=== PATIENT | female | born 1945 | race Caucasian/White ===

== ENCOUNTER 2016-07-25 07:01 | Day surgery (SDC) | payer MEDICARE, OTHER ==
[~2016-07-25 07:01] MED LIST: Lactated Ringers 1,000 ML IV SCH; Lidocaine 1%/Sod Bicarbonate in NS 8.4% 1 ML Syringe PRN; Sodium Chloride 0.9% 10 ML Syringe FLUSH PRN
--- NOTE | 2016-07-25 07:22 | PCM.PREANE ---
Preanesthetic Assessment - Anesthesia/Transfusion/Family Hx Anesthesia History: Prior Anesthesia Without Reaction Family History of Anesthesia Reaction: No Transfusion History: No Prior Transfusion(s) Intubation History: Unknown - Review of Systems General: No Symptoms Cardiovascular: No Symptoms Gastrointestinal: No symptoms Neurological: Tingling (both sides ) Other: Reports: Diabetes (pre-diabetic ) - Physical Assessment NPO Status Date: 07/24/16 NPO Status Time: 21:30 Pulse: 79 O2 Sat by Pulse Oximetry: 94 Respiratory Rate: 16 Blood Pressure: 144/69 Temperature: 36.9 C Height: 1.6 m Weight: 65.1 kg ASA Class: 2 Mental Status: Alert & Oriented x3 Airway Class: Mallampati = 2 Dentition: Reports: Normal Dentition Thyro-Mental Finger Breadths: 3 Mouth Opening Finger Breadths: 5 ROM/Head Extension: Full Lungs: Clear to auscultation, Normal respiratory effort Cardiovascular: Regular Rate, Regular Rhythm - Allergies Allergies/Adverse Reactions: Allergies Allergy/AdvReac Type Severity Reaction Status Date / Time Penicillins Allergy Rash Verified 07/24/16 12:05 - Blood Blood Available: No - Anesthesia Plan Pre-Op Medication Ordered: None - Acknowledgements Anesthesia Type Planned: MAC Pt an Appropriate Candidate for the Planned Anesthesia: Yes Alternatives and Risks of Anesthesia Discussed w Pt/Guardian: Yes Pt/Guardian Understands and Agrees with Anesthesia Plan: Yes PreAnesthesia Questionnaire HEENT History: Reports: Allergic rhinitis Genitourinary History: Reports: UTI, recurrent Musculoskeletal History: Reports: Arthritis Endocrine/Metabolic History: Reports: Hypothyroidism - Past Surgical History Female Surgical History: Reports: Hysterectomy, Other (see below) Other Female Surgeries/Procedures: mid-urethral sling - SUBSTANCE USE Smoking Status *Q: Never Smoker Number of Drinks Per Day: 2 Recreational Drug Use History: No - HOME MEDS Home Medications: Home Meds Calcium Carbonate/Vitamin D3 [Calcium 500 + Vit D 400] 1 tab PO DAILY 07/24/16 [ History] Diclofenac Sodium [Voltaren] 50 mg PO DAILY 07/24/16 [History] Fish Oil/[place]-3 Fatty Acids [Fish Oil 1,000 MG] 1 cap PO DAILY 07/24/16 [ History] Fluticasone Propionate [Flonase] 1 spray NASBOTH DAILY 07/24/16 [History] Glucosamine/D3/Boswellia Elzbieta [Osteo Bi-Flex Caplet] 1 tab PO DAILY 07/24/16 [ History] Levothyroxine Sodium [Synthroid] 125 mcg PO DAILY 07/24/16 [History] metFORMIN [Glucophage XR] 500 mg PO DAILY 07/24/16 [History] - CURRENT (IN HOUSE) MEDS Current Meds: Current Medications Lactated Ringer's (Ringers, Lactated) 1,000 mls @ 125 mls/hr IV ASDIRECTED EMMANUEL Stop: 07/25/16 23:00 Lidocaine/Sodium Bicarbonate (Buffered Lidocaine 1% In Ns 8.4%) 0.25 ml .XX ONETIME PRN PRN Reason: Prior to IV Start Stop: 07/25/16 18:00 Sodium Chloride (Saline Flush) 10 ml FLUSH ASDIRECTED PRN PRN Reason: Keep Vein Open Stop: 07/25/16 18:00
[2016-07-25] MEDS ORDERED: Propofol 200 MG/20 ML SDV ONE ×2 (07:49→09:01)
[2016-07-25] MEDS ORDERED: Lidocaine 1% 4 ML ONE (07:51)
--- NOTE | 2016-07-25 08:59 | PCM.OPNOTE ---
- General Post-Op/Procedure Note Date of Surgery/Procedure: 07/25/16 Operative Procedure(s): Colonoscopy Findings: large sigmoid divertuculosis with sigmoid tortuosity and thickend circular musculature. No hemorrhoids were seen. No evidence of acute or chronic bleeding was seen. Pre Op Diagnosis: rectal bleeding Post-Op Diagnosis: Large sigmoid diverticulosis Anesthesia Technique: MAC, Moderate sedation Primary Surgeon: Pranay Mcgee Pathology: None EBL in mLs: 0 Complications: None Condition: Good Free Text/Narrative:: After adequate IV sedation and analgesia was obtained the patient was placed on her left side. Perianal inspection and digital rectal examination were normal. A lubricated colonoscope was inserted into the rectum and advanced to the cecum without difficulty. The bowel preparation was adequate. The cecum, right colon, transverse, and descending colons were endoscopically normal with no mass lesions or inflammatory changes seen. The sigmoid was quite tortuous and had very large uncomplicated sigmoid diverticuli. There was significant circular muscle hypertrophy in this area as well. The scope was then withdrawn to the rectum and in both views was endoscopically normal. There were no significant hemorrhoidal changes. Air was removed as I finished the procedure, which she tolerated well. [employer] Assistant Manager photographs were taken for the patient and for the record.
[2016-07-25 09:01] VITALS: BP 145/76
[2016-07-25] MEDS ORDERED: Midazolam 1 MG/ML 2 ML SDV ONE (09:03)
--- NOTE | 2016-07-25 10:13 | PCM48HPAN ---
Post Anesthesia Note - EVALUATION WITHIN 48HRS OF ANESTHETIC Vital Signs in Normal Range: Yes Patient Participated in Evaluation: Yes Respiratory Function Stable: Yes Airway Patent: Yes Cardiovascular Function Stable: Yes Hydration Status Stable: Yes Pain Control Satisfactory: Yes Nausea and Vomiting Control Satisfactory: Yes Mental Status Recovered: Yes
== END 2016-07-25 09:25 | disposition home or self-care (01) ==
LOC: JD.SDS 07:01
PROVIDERS: ATTEND Surgery
PROC: 0DJD8ZZ Inspection of Lower Intestinal Tract, Via Natural or Artificial Opening Endoscopic (ICD-10-PCS; principal; 2016-07-25)
DX: K62.5 Hemorrhage of anus and rectum (principal); K57.30 Diverticulosis of large intestine without perforation or abscess without bleeding; Z83.71 Family history of colonic polyps; Z87.440 Personal history of urinary (tract) infections; M19.90 Unspecified osteoarthritis, unspecified site; E03.9 Hypothyroidism, unspecified; Z79.1 Long term (current) use of non-steroidal anti-inflammatories (NSAID); Z79.899 Other long term (current) drug therapy; Z88.0 Allergy status to penicillin; J30.9 Allergic rhinitis, unspecified
CPT/HCPCS: 45378; J2250; J7120; 00810; J2704

== ENCOUNTER 2018-08-21 08:46 | Day surgery (SDC) | payer MEDICARE, OTHER ==
[2018-08-21] MEDS: Polymyxin B/Trimethoprim 10 ML Bottle EYERT SCH ×4 (10:00→11:51)
[2018-08-21] MEDS: Brimonidine 0.2% Ophth Soln 5 ML Bottle EYERT SCH ×4 (10:05→11:51)
[2018-08-21] MEDS: Phenylephrine 2.5% Ophth Soln 2 ML Bot EYERT SCH ×6 (10:10→11:32)
[2018-08-21] MEDS: Tropicamide 1% Ophth Soln 15 ML Bottle EYERT SCH ×4 (10:15→10:55)
--- NOTE | 2018-08-21 10:18 | PCM.PREANE ---
Preanesthetic Assessment - Anesthesia/Transfusion/Family Hx Anesthesia History: Prior Anesthesia Without Reaction Transfusion History: No Prior Transfusion(s) Intubation History: Unknown - Review of Systems General: No Symptoms Pulmonary: No Symptoms Cardiovascular: No Symptoms Gastrointestinal: No Symptoms Neurological: No Symptoms Other: Reports: None (Pre Diabetic), Thyroid Problems - Physical Assessment NPO Status Date: 08/20/18 NPO Status Time: 19:00 O2 Sat by Pulse Oximetry: 95 Respiratory Rate: 16 Vital Signs: Last Vital Signs Temp 36.5 C 08/21/18 09:49 Pulse 83 08/21/18 09:49 Resp 16 08/21/18 09:49 BP 143/67 H 08/21/18 09:49 Pulse Ox 95 08/21/18 09:49 Height: 1.63 m Weight: 70.307 kg ASA Class: 2 Mental Status: Alert & Oriented x3 Airway Class: Mallampati = 2 Dentition: Reports: Normal Dentition Thyro-Mental Finger Breadths: 3 Mouth Opening Finger Breadths: 3 ROM/Head Extension: Full Lungs: Clear to Auscultation, Normal Respiratory Effort Cardiovascular: Regular Rate, Regular Rhythm, Murmurs (Maya will follow up with her primary care doctor. ) - Allergies Allergies/Adverse Reactions: Allergies Allergy/AdvReac Type Severity Reaction Status Date / Time Penicillins Allergy Rash Verified 08/21/18 10:12 - Acknowledgements Anesthesia Type Planned: MAC Pt an Appropriate Candidate for the Planned Anesthesia: Yes Alternatives and Risks of Anesthesia Discussed w Pt/Guardian: Yes Pt/Guardian Understands and Agrees with Anesthesia Plan: Yes PreAnesthesia Questionnaire HEENT History: Reports: Allergic Rhinitis Genitourinary History: Reports: UTI, Recurrent Musculoskeletal History: Reports: Arthritis Endocrine/Metabolic History: Reports: Hypothyroidism - Past Surgical History Female Surgical History: Reports: Hysterectomy, Other (See Below) - HOME MEDS Home Medications: Home Meds metFORMIN [Glucophage XR] 500 mg PO DAILY 07/24/16 [History] Levothyroxine 150 mcg PO DAILY 08/20/18 [History] Liothyronine [Cytomel] 5 mcg PO DAILY 08/20/18 [History] atorvaSTATin [Lipitor] 10 mg PO DAILY 08/20/18 [History] - CURRENT (IN HOUSE) MEDS Current Meds: Current Medications Brimonidine Tartrate (Alphagan 0.2% Ophth Soln) 0 ml EYERT ASDIRECTED EMMANUEL Stop: 08/21/18 18:00 Last Admin: 08/21/18 10:05 Dose: 1 drop Cefuroxime Sodium (Zinacef) 0 mg EYERT ASDIRECTED EMMANUEL Stop: 08/21/18 18:00 Lidocaine HCl (Xylocaine-Mpf 1%) 0 ml INJECT ASDIRECTED EMMANUEL Stop: 08/21/18 18:00 Phenylephrine HCl (Shin-Synephrine 2.5% Ophth Soln) 0 ml EYERT ASDIRECTED EMMANUEL Stop: 08/21/18 18:00 Last Admin: 08/21/18 10:10 Dose: 1 drop Pilocarpine HCl (Pilocar 4% Ophth Soln) 0 ml EYERT ASDIRECTED EMMANUEL Stop: 08/21/18 18:00 Polymyxin/Trimethoprim Sulfate (Polytrim Ophth Soln) 0 ml EYERT ASDIRECTED EMMANUEL Stop: 08/21/18 18:00 Last Admin: 08/21/18 10:00 Dose: 1 drop Tetracaine HCl (Tetracaine 0.5% Steri-Unit Radha) 0 ml EYERT ASDIRECTED EMMANUEL Stop: 08/21/18 18:00 Tropicamide (Mydriacyl 1% Ophth Soln) 0 ml EYERT ASDIRECTED EMMANUEL Stop: 08/21/18 18:00 Last Admin: 08/21/18 10:15 Dose: 1 drop
[2018-08-21] MEDS: Tetracaine HCl/PF 0.5% 4 ML Bottle EYERT SCH ×5 (10:41→11:42)
[2018-08-21] MEDS: Lidocaine 1% PF 2 ML SDV INJECT SCH ×2 (10:41→11:41)
[2018-08-21] MEDS: Cefuroxime 10 MG/ML SYRINGE EYERT SCH ×2 (10:42→11:50)
[2018-08-21] MEDS: Pilocarpine 4% Ophth Soln 15 ML Bot EYERT SCH ×2 (10:42→11:51)
[2018-08-21 12:34] VITALS: BP 144/84
== END 2018-08-21 12:05 | disposition home or self-care (01) ==
LOC: JD.SDS 08:46
PROVIDERS: ATTEND Ophthalmology
DX: H25.813 Combined forms of age-related cataract, bilateral (principal); H35.3131 Nonexudative age-related macular degeneration, bilateral, early dry stage; H16.103 Unspecified superficial keratitis, bilateral; H16.223 Keratoconjunctivitis sicca, not specified as Sjogren's, bilateral; H02.834 Dermatochalasis of left upper eyelid; H02.831 Dermatochalasis of right upper eyelid; E11.9 Type 2 diabetes mellitus without complications; E03.9 Hypothyroidism, unspecified; M19.90 Unspecified osteoarthritis, unspecified site; Z88.0 Allergy status to penicillin; Z83.518 Family history of other specified eye disorder; Z79.84 Long term (current) use of oral hypoglycemic drugs; Z79.899 Other long term (current) drug therapy
CPT/HCPCS: 66984; C1780; J0697; J2001